=== PATIENT | male | born 1955 | race Native Hawaiian/Other Pacific Islander ===

== ENCOUNTER 2021-06-22 16:55 | Inpatient (IN) | payer OTHER ==
[~2021-06-22] VITALS: Ht 190.5 cm; Wt 66.8 kg
[2021-06-22 18:23] VITALS: BP 117/66; TEMP 97.9; Ht 190.5 cm; Wt 66.8 kg
[2021-06-23 08:00] VITALS: BP 100/63; TEMP 97.6
[2021-06-23 20:00] VITALS: BP 91/55; TEMP 98.3
[2021-06-24 08:00] VITALS: BP 91/57; TEMP 98.9
[2021-06-24 20:00] VITALS: BP 96/55; TEMP 98.5
[2021-06-25 08:00] VITALS: BP 91/53; TEMP 98.6
[2021-06-25 20:00] VITALS: BP 82/49; TEMP 98.2
[2021-06-26] MEDS ORDERED: ELIQUIS5 MG PO (11:07)
[2021-06-26] MEDS ORDERED: ACET-655 PO (11:08)
[2021-06-26] MEDS ORDERED: DOXA2TAB PO (11:09)
[2021-06-26] MEDS ORDERED: TAMS0.4C PO (11:33)
== END 2021-06-26 12:30 | disposition home health service (06) | DRG 949 ==
LOC: SWING 16:55 → MED/SURG 18:16
PROVIDERS: ADMIT Internal Medicine Endocrinology, Diabetes & Metabolism; ATTEND Internal Medicine Endocrinology, Diabetes & Metabolism
DX: S06.6X9D Traumatic subarachnoid hemorrhage with loss of consciousness of unspecified duration, subsequent encounter (principal); W17.89XD Other fall from one level to another, subsequent encounter; R53.81 Other malaise; I82.503 Chronic embolism and thrombosis of unspecified deep veins of lower extremity, bilateral; E44.0 Moderate protein-calorie malnutrition; R13.12 Dysphagia, oropharyngeal phase; M62.81 Muscle weakness (generalized); R27.8 Other lack of coordination; Z74.1 Need for assistance with personal care; R26.81 Unsteadiness on feet; D69.6 Thrombocytopenia, unspecified
CPT/HCPCS: 87081; 87635; 94760; U0003